=== PATIENT | female | born 1940 | race Native Hawaiian/Other Pacific Islander ===

== ENCOUNTER 2022-03-31 17:43 | Emergency (ER) | payer OTHER ==
[~2022-03-31] VITALS: Ht 165.1 cm; Wt 78.5 kg
[~2022-03-31 17:43] MED LIST: 904272561 PO
[2022-03-31 17:45] VITALS: BP 146/98; TEMP 98.1
[2022-03-31 18:10] LABS: PLATELET COUNT 262 K/uL (152-353)
[2022-03-31 18:26] LABS: POTASSIUM 3.8 mmol/L (3.6-5.2)
[2022-04-01] MEDS ORDERED: FLUOXETINE40 MG PO (09:33)
[2022-04-01] MEDS ORDERED: FURO20TA67 PO (09:34)
[2022-04-01] MEDS ORDERED: JANUVIA25 MG PO (09:34)
[2022-04-01] MEDS ORDERED: LEVEMIR FL100 UNIT/M SC (09:35)
[2022-04-01] MEDS ORDERED: MELATONIN5 M2 PO (09:35)
[2022-04-01] MEDS ORDERED: GNP CLEARLAX17 GM PO (09:36)
[2022-04-01] MEDS ORDERED: MONT10TA PO (09:37)
[2022-04-01] MEDS ORDERED: MYRBETRIQ25 MG PO (09:38)
[2022-04-01] MEDS ORDERED: EUTHYROX75 MCG PO (09:39)
[2022-04-01] MEDS ORDERED: DQZATE100 MG PO (09:40)
[2022-04-01] MEDS ORDERED: RIVA1.5C PO (09:41)
[2022-04-01] MEDS ORDERED: QUETIAPINE50 MG PO (09:41)
[2022-04-01] MEDS ORDERED: BUDE1AER5 INH (09:43)
[2022-04-01] MEDS ORDERED: NEURONTIN 100M100 MG PO (09:44)
[2022-04-01] MEDS ORDERED: PROAIR HFA108 MCG/AC INH (09:45)
[2022-04-01] MEDS ORDERED: LOMOTIL2.5 MG PO (09:47)
[2022-04-01] MEDS ORDERED: HYDR-3182 PO (09:49)
== END 2022-03-31 22:15 | disposition still patient (30) ==
LOC: ED 17:43
PROVIDERS: Emergency Medicine Emergency Medical Services
DX: F03.911 Unspecified dementia, unspecified severity, with agitation (principal); Z11.52 Encounter for screening for COVID-19; Z04.6 Encounter for general psychiatric examination, requested by authority
CPT/HCPCS: 80053; 85027; 87635; 93005; 99283; U0003